=== PATIENT | male | born 1965 | race Two or more races ===

== ENCOUNTER 2017-03-27 13:36 | Emergency (ER) | payer SELFPAY ==
--- NOTE | 2017-03-27 14:25 | ER Document Report ---
ED Skin Rash/Insect Bite/Abscs - General Chief Complaint: Abscess Stated Complaint: POSSIBLE CYST ON BACK Time Seen by Provider: 03/27/17 14:19 Notes: Patient is a 51-year-old male presents emergency department complaining of inflammation of the cyst he has had on his right shoulder for a couple years. Patient states he has never had problems within the past but over the past couple of days it has gotten red, tender, swollen with a little bit of drainage. He states that it is tender to touch. Otherwise he denies any fever , chills. TRAVEL OUTSIDE OF THE [place] IN LAST 30 DAYS: No Past Medical History - Social History Smoking Status: Current Every Day Smoker Family History: Reviewed & Not Pertinent Renal/ Medical History: Denies: Hx Peritoneal Dialysis Review of Systems - Review of Systems Constitutional: No symptoms reported Skin: See HPI -: Yes All other systems reviewed and negative Physical Exam - Vital signs Vitals: Temp Pulse Resp BP Pulse Ox 97.8 F 67 20 147/80 H 98 03/27/17 13:46 03/27/17 13:46 03/27/17 13:46 03/27/17 13:46 03/27/17 13:46 - General General appearance: Appears well, Alert In distress: None - Extremities Shoulder: Normal, Nontender. No: Limited ROM - Skin Skin irregularity: Abscess - right shoulder measuring [id number] Irregularity with: Tenderness, Weeping Course - Re-evaluation Re-evalutation: 03/27/17 14:42 Patient is a 51-year-old male who is hemodynamic stable, no acute distress afebrile. Presents with cellulitis of his cyst that he has had for 2 years. I& D performed at the bedside to relieve pressure. Patient clinically states he feels much much better. Patient educated on post incision and drainage wound care and to follow-up with primary care in 3 days for wound check. Patient agrees with plan. - Vital Signs Vital signs: Temp Pulse Resp BP Pulse Ox 97.8 F 67 20 147/80 H 98 03/27/17 13:46 03/27/17 13:46 03/27/17 13:46 03/27/17 13:46 03/27/17 13:46 Procedures - Incision and Drainage Right Shoulder Type: Simple Anesthetic type: 1% Lidocaine mL's of anesthetic: 3 Blade size: 11 I&D procedure: Betadine prep applied Incision Method: Incision made by scalpel Amount/type of drainage: 10cc cystic material Discharge - Discharge Clinical Impression: Abscess Condition: Good Disposition: HOME, SELF-CARE Instructions: Oral Narcotic Medication ([facility]), Post Incision and Drainage, Abscess ([facility]), Cellulitis ([facility]) Referrals: [facility] [Provider Group] - Follow up in 3-5 days (for wound check)
[2017-03-27] MEDS ORDERED: HYDROCODONE/ACETAMINOPHEN 5-325 MG 6 TAB/DSPK PO PRN (15:00)
[2017-03-27] MEDS ORDERED: OXYCODONE-ACETAMINOPHEN 5-325 MG TABLET PO ONE (15:00)
[2017-03-27 16:18] VITALS: BP 145/82
== END 2017-03-27 15:55 | disposition home or self-care (01) ==
LOC: ER 13:36
PROC: 0H9BXZZ Drainage of Right Upper Arm Skin, External Approach (ICD-10-PCS; principal; 2017-03-27)
DX: L02.413 Cutaneous abscess of right upper limb (principal); F17.200 Nicotine dependence, unspecified, uncomplicated
CPT/HCPCS: 99283

== ENCOUNTER 2017-05-29 18:49 | Inpatient (IN) | payer OTHER ==
[2017-05-30] MEDS ORDERED: VANCOMYCIN HCL INJ 1000 MG VIAL IV ONE (00:52)
[2017-05-30] MEDS ORDERED: CEFTRIAXONE 1 GM/D5W RTU 1 GM/50 ML RTUPB IV ONE (00:53)
[2017-05-30] MEDS ORDERED: NORMAL SALINE 1000 ML 1,000 ML IV ONE (00:54)
--- NOTE | 2017-05-30 00:56 | ER Document Report ---
ED General - General Chief Complaint: Abscess Stated Complaint: FINGER PAIN Time Seen by Provider: 05/29/17 22:48 Notes: Patient is a 51-year-old male without any chronic medical problems who presents with complaints of increased swelling and pain to his right middle finger after extracting a splinter that was buried underneath his nail bed earlier today. Patient states that the splinter has been in place since approximately December of this year but it remained persistently painful since that time. He states today he pulled the splinter out from underneath his nail bed and a large amount of pus was expressed. However, he states that he began to develop progressively worsening swelling and pain to the finger since that time. He is right-hand dominant. Nothing improves the pain. He states touching the area worsens the pain. He has no prior history of swelling or this degree of discomfort to the splinter became lodged under the nail bed. He has not seen his primary care doctor regarding today's concerns. He denies any associated fever or constitutional symptoms. TRAVEL OUTSIDE OF THE [place] IN LAST 30 DAYS: No Past Medical History - General Information source: Patient - Social History Smoking Status: Never Smoker Frequency of alcohol use: None Drug Abuse: None Lives with: Spouse/Significant other Family History: Reviewed & Not Pertinent Patient has suicidal ideation: No Patient has homicidal ideation: No Renal/ Medical History: Denies: Hx Peritoneal Dialysis Review of Systems - Review of Systems Notes: Constitutional: Negative for fever. HENT: Negative for sore throat. Eyes: Negative for visual changes. Cardiovascular: Negative for chest pain. Respiratory: Negative for shortness of breath. Gastrointestinal: Negative for abdominal pain, vomiting or diarrhea. Genitourinary: Negative for dysuria. Musculoskeletal: Positive for right middle finger pain Skin: Negative for rash. Neurological: Negative for headaches, weakness or numbness. 10 point ROS negative except as marked above and in HPI. Physical Exam - Vital signs Vitals: Temp Pulse Resp BP Pulse Ox 98.7 F 74 18 147/92 H 97 05/29/17 19:30 05/29/17 19:30 05/29/17 19:30 05/29/17 19:30 05/29/17 19:30 Interpretation: Normal Notes: PHYSICAL EXAMINATION: GENERAL: Appears uncomfortable but in no acute distress HEAD: Atraumatic, normocephalic. EYES: Pupils equal round and reactive to light, extraocular movements intact, sclera anicteric, conjunctiva are normal. ENT: nares patent, oropharynx clear without exudates. Moderately dry mucous membranes. NECK: Normal range of motion, supple without lymphadenopathy LUNGS: Breath sounds clear to auscultation bilaterally and equal. No wheezes rales or rhonchi. HEART: Regular rate and rhythm without murmurs. 2+ radial pulse bilaterally. ABDOMEN: Soft, nontender, normoactive bowel sounds. No guarding, no rebound. No masses appreciated. EXTREMITIES: There is diffuse circumferential swelling to the right middle finger extending from the PIP to the end of the finger. Patient is unable to perform flexion of the digit at the DIP or PIP. He has pain along the flexor sheath of the tendon. There is a prominent swelling to the volar pad and apparent paronychia underneath the nailbed. There is a large clotted hematoma likewise into the distal end of the nailbed. NEUROLOGICAL: No focal neurological deficits. Moves all extremities spontaneously and on command. PSYCH: Normal mood, normal affect. SKIN: Warm, Dry, normal turgor, no rashes or lesions noted. Course - Re-evaluation Re-evalutation: 05/30/17 00:55 Presentation of a [id number] male with extreme swelling and pain to the right middle finger after he pulled a splinter that have been in place for approximately 4 months out of his nail bed today. Initial evaluation seemed consistent with a severe paronychia and felon of the digit. However, after a digital block was placed in appropriate incision and drainage for a possible paronychia and felon was performed and no fluid could be drained. I then performed a bedside percutaneous ultrasound and was unable to localize any fluid collection. Patient is unable to flex the digit at the DIP or PIP. He has pain all along the flexor sheath. He has a sausage digit. This presentation particularly given the lack of any distinct fluid collection is increasingly worrisome for a flexor tenosynovitis. Will place an IV, provide IV antibiotics, obtain laboratories, cultures, and consult with orthopedic surgery for admission 05/30/17 02:09 Labs have returned, overall unremarkable, awaiting x-ray. 05/30/17 02:33 I have discussed with Dr. smith who agrees to admit the patient on IV antibiotics. - Vital Signs Vital signs: Temp Pulse Resp BP Pulse Ox 98.7 F 74 18 147/92 H 97 05/29/17 19:30 05/29/17 19:30 05/29/17 19:30 05/29/17 19:30 05/29/17 19:30 - Laboratory Result Diagrams: 05/30/17 01:00 05/30/17 01:00 Laboratory results interpreted by me: 05/30/17 01:00 BUN 21 H - Diagnostic Test Radiology reviewed: Image reviewed, Reports reviewed Radiology results interpreted by me: 05/30/17 02:33 Right hand x-ray: No obvious retained foreign body Procedures - Incision and Drainage Right 3rd digit Type: Simple Anesthetic type: 1% Lidocaine mL's of anesthetic: 3 Blade size: 11 I&D procedure: Betadine prep applied Incision Method: Incision made by scalpel Amount/type of drainage: 2 cc bloody drainage Discharge - Discharge Clinical Impression: Swelling of right middle finger, Flexor tenosynovitis of finger Condition: Fair Disposition: ADMITTED INPATIENT Admitting Provider: [facility] Unit Admitted: Surgical Floor
[2017-05-30] MEDS: HYDROMORPHONE HCL INJ/PF 2 MG/ML AMPULE IV PRN ×5 (01:12→21:46)
[2017-05-30 01:33] LABS: ABSOLUTE BASOPHILS # (AUTO) 0.1 10^3/uL (0.0-0.2); ABSOLUTE EOSINOPHILS # (AUTO) 0.4 10^3/uL (0.0-0.6); ABSOLUTE LYMPHOCYTES (AUTO) 3.4 10^3/uL (0.5-4.7); ABSOLUTE MONOCYTES (AUTO) 0.9 10^3/uL (0.1-1.4); ABSOLUTE NEUT (AUTO) 5.3 10^3/uL (1.7-8.2); HEMATOCRIT 40.7 % (37.9-51.0); HEMOGLOBIN 14.1 g/dL (13.5-17.0); HGB HCT DIFFERENCE 1.6; LYMPHOCYTES % (AUTO) 33.5 % (13-45); MEAN CORPUSCULAR HEMOGLOBIN 29.7 pg (27.0-33.4); MEAN CORPUSCULAR HGB CONC 34.8 g/dL (32.0-36.0); MEAN CORPUSCULAR VOLUME 86 fl (80-97); MONOCYTES % (AUTO) 8.6 % (3-13); RED BLOOD COUNT 4.75 10^6/uL (4.35-5.55); RED CELL DISTRIBUTION WIDTH 12.7 % (11.5-14.0); SEGMENTED NEUTROPHILS % (AUTO) 52.9 % (42-78)
[2017-05-30 01:41] LABS: ANION GAP 12 (5-19); BLOOD UREA NITROGEN 21 mg/dL (7-20); CALCIUM 9.2 mg/dL (8.4-10.2); CARBON DIOXIDE 25 mmol/L (22-30); CHLORIDE 104 mmol/L (98-107); CREATININE RESULT 0.81 mg/dL (0.52-1.25); GLUCOSE 100 mg/dL (75-110); POTASSIUM 4.4 mmol/L (3.6-5.0); SODIUM 140.8 mmol/L (137-145)
[2017-05-30] MEDS ORDERED: HYDROMORPHONE HCL INJ/PF 2 MG/ML AMPULE IV ONE (02:32)
--- NOTE | 2017-05-30 02:51 | RADIOLOGY REPORT (SQ) ---
EXAM DESCRIPTION: HAND RIGHT 3 VIEWS COMPLETED DATE/TIME: 05/30/2017 2:15 am REASON FOR STUDY: eval foreign body . Splinter under the nail. Pain at the distal 3rd digit. COMPARISON: None. EXAM PARAMETERS: NUMBER OF VIEWS: Three views. TECHNIQUE: AP, lateral and oblique radiographic images acquired of the right hand. LIMITATIONS: None. FINDINGS: MINERALIZATION: Normal. BONES: No acute fracture or dislocation. SOFT TISSUES: Soft tissue swelling at the 3rd digit. No radiopaque foreign body. IMPRESSION: No radiographic evidence for acute fracture or radiopaque foreign body. Soft tissue swe lling at the 3rd digit. TECHNICAL DOCUMENTATION: JOB ID: [id number] [id number]- All Rights Reserved
[2017-05-30] MEDS ORDERED: ONDANSETRON HCL INJ/PF 4 MG/2 ML SDV IV PRN (03:19)
[2017-05-30] MEDS ORDERED: AMPICILLIN SOD/SULBACTAM 3 GM VIAL IV PRN (04:27)
[2017-05-30] MEDS ORDERED: AMPICILLIN SOD/SULBACTAM 3 GM VIAL IV SCH (06:00)
[2017-05-30] MEDS ORDERED: AMPICILLIN SODIUM/SULBACTAM NA 3 GM in NORMAL SALINE 100 ML IV SCH ×5 (06:00→18:00)
[2017-05-30] MEDS: RINGERS SOLUTION,LACTATED 1,000 ML IV PRN (06:58)
--- NOTE | 2017-05-30 08:37 | PDOC H&P ---
History of Present Illness Admission Date/PCP: 05/30/17 02:42 Patient complains of: Right middle finger pain History of Present Illness: COLIN PURVIS is a 51 year old male who sustained injury to his right middle finger at work. He states a splinter that stuck in his middle finger back in December and part of it was removed but the other segment could not be removed. He was not having issues until this past Monday began having increasing pain redness and swelling. He subsequently presented to emergency room with these complaints while in the emergency room attempted bedside irrigation debridement was performed but no gross purulence was encountered. Patient states the pain is worse with any motion also noticed some numbness and tingling in the fingers. Denies fever chills or sweats. Pain /. Social History Lives with: Spouse/Significant other Smoking Status: Never Smoker Frequency of Alcohol Use: Rare Family History Family History: Reviewed & Not Pertinent Parental Family History Reviewed: No Children Family History Reviewed: No Sibling(s) Family History Reviewed.: No Medication/Allergy Home Medications: Ibuprofen [Motrin 800 mg Tablet] 800 mg PO Q8H PRN #30 tab 03/27/17 Allergies/Adverse Reactions: No Known Allergies Allergy (Unverified 05/30/17 03:27) Review of Systems Constitutional: ABSENT: chills, fever(s), headache(s), weight gain, weight loss Eyes: ABSENT: visual disturbances Ears: ABSENT: hearing changes Cardiovascular: ABSENT: chest pain, dyspnea on exertion, edema, orthropnea, palpitations Respiratory: ABSENT: cough, hemoptysis Gastrointestinal: ABSENT: abdominal pain, constipation, diarrhea, hematemesis, hematochezia, nausea, vomiting Genitourinary: ABSENT: dysuria, hematuria Musculoskeletal: PRESENT: as per HPI Integumentary: ABSENT: rash, wounds Neurological: ABSENT: abnormal gait, abnormal speech, confusion, dizziness, focal weakness, syncope Psychiatric: ABSENT: anxiety, depression, homidical ideation, suicidal ideation Endocrine: ABSENT: cold intolerance, heat intolerance, menstrual abnormalities, polydipsia, polyuria Hematologic/Lymphatic: ABSENT: easy bleeding, easy bruising, lymphadenopathy Physical Exam Vital Signs: Temp Pulse Resp BP Pulse Ox 98.5 F 65 18 124/89 H 97 05/30/17 03:42 05/30/17 03:42 05/30/17 03:42 05/30/17 03:42 05/30/17 03:42 Intake & Output 05/29/17 05/30/17 05/31/17 06:59 06:59 06:59 Intake Total 150 Balance 150 Weight 83.1 kg General appearance: PRESENT: no acute distress, well-developed, well-nourished Head exam: PRESENT: atraumatic, normocephalic Eye exam: PRESENT: conjunctiva pink, EOMI, PERRLA. ABSENT: scleral icterus Ear exam: PRESENT: normal external ear exam Mouth exam: PRESENT: moist, tongue midline Teeth exam: PRESENT: poor dentation Neck exam: PRESENT: full ROM. ABSENT: carotid bruit, JVD, lymphadenopathy, thyromegaly Cardiovascular exam: PRESENT: RRR. ABSENT: diastolic murmur, rubs, systolic murmur Pulses: PRESENT: normal dorsalis pedis pul, +2 pedal pulses bilateral Vascular exam: PRESENT: normal capillary refill GI/Abdominal exam: PRESENT: normal bowel sounds, soft. ABSENT: distended, guarding, mass, organolmegaly, rebound, tenderness Rectal exam: PRESENT: deferred Musculoskeletal exam: PRESENT: other - Right hand: Tenderness to palpation along the flexor sheath of the middle finger. No tenderness proximal to the MP joint or at the A1 noa. Pain with passive extension. Notable erythema and swelling along the pulp with exquisite tenderness to palpation. Ecchymosis along the hyponychium adjacent to the nail at the level of previous puncture wound. Exquisite tenderness to palpation at this region. Altered sensation on the distal tip. Cap refill less than 2 seconds. Neurological exam: PRESENT: alert, awake, oriented to person, oriented to place , oriented to time, oriented to situation, CN II-XII grossly intact. ABSENT: motor sensory deficit Psychiatric exam: PRESENT: appropriate affect, normal mood. ABSENT: homicidal ideation, suicidal ideation Skin exam: PRESENT: dry, intact, warm. ABSENT: cyanosis, rash Results Impressions: Hand X-Ray 05/30/17 00:54 IMPRESSION: No radiographic evidence for acute fracture or radiopaque foreign body. Soft tissue swelling at the 3rd digit. Status: Image reviewed by mt - Radiographs of the right middle finger have been reviewed which demonstrate soft tissue swelling no evidence of opaque foreign body or osseous changes. Assessment & Plan - Diagnosis (1) Flexor tenosynovitis of finger Is this a current diagnosis for this admission?: Yes Plan: Given the findings on physical examination patient has underlying flexor tenosynovitis with associated likely paronychia I caused by his original foreign body injury. Given these findings I have recommended operative intervention which includes irrigation and debridement of the right middle finger risks and benefits of the surgical procedure have been explained to the patient including neurovascular risk, recurrent infection requiring future surgical intervention or possibility of amputation, postoperative stiffness and persistent swelling. Patient has verbalized understanding consented for the procedure.
[2017-05-30] MEDS ORDERED: BACITRACIN INJ 50,000 UNIT VIAL ONE (10:21)
[2017-05-30] MEDS ORDERED: HYDROMORPHONE HCL INJ/PF 2 MG/ML AMPULE ONE (11:15)
[2017-05-30] MEDS ORDERED: PROPOFOL INJ 200 MG/20 ML VIAL IV ONE (11:16)
[2017-05-30] MEDS ORDERED: MIDAZOLAM 2 MG/2 ML INJ ONE (11:16)
[2017-05-30] MEDS ORDERED: FENTANYL CITRATE INJ/PF 100 MCG/2 ML AMPUL ONE (11:16)
[2017-05-30] MEDS ORDERED: BUPIVACAINE HCL 0.5 % INJ/PF 30 ML SDV ONE (11:32)
[2017-05-30] MEDS ORDERED: LIDOCAINE 1% INJ-PF (10 MG/ML) 30 ML SDV ONE (11:32)
[2017-05-30] MEDS ORDERED: OXYCODONE-ACETAMINOPHEN 5-325 MG TABLET PO PRN ×2 (12:04)
[2017-05-30] MEDS ORDERED: PROMETHAZINE HCL INJ 25 MG/1 ML VIAL IV PRN ×2 (12:04)
[2017-05-30] MEDS ORDERED: FENTANYL CITRATE INJ/PF 100 MCG/2 ML AMPUL IV PRN ×3 (12:04)
[2017-05-30] MEDS ORDERED: MORPHINE SULFATE 10 MG/ML INJ IV PRN (12:04)
[2017-05-30] MEDS ORDERED: MEPERIDINE HCL/PF INJ 25 MG/1 ML DISP.SYRIN IV PRN (12:04)
[2017-05-30] MEDS ORDERED: DIPHENHYDRAMINE HCL 50 MG/ML VIAL IV PRN (12:04)
--- NOTE | 2017-05-30 12:42 | Operative Report ---
Operative Report DATE OF SURGERY: 05/30/17 PREOPERATIVE DIAGNOSIS: Flexor tenosynovitis right middle finger POSTOPERATIVE DIAGNOSIS: #1 Flexor tenosynovitis right middle finger. #2 retained foreign body right middle finger. #3 nailbed laceration right middle finger. #4 abscess hyponychium right middle finger OPERATION: #1 I&D Flexor tenosynovitis right middle finger. #2 removal retained foreign body right middle finger. #3 repair nailbed laceration right middle finger. #4 I&D abscess hyponychium right middle finger including bone of distal phalanx SURGEON: ERIKA HERBERT ANESTHESIA: LMAC TISSUE REMOVED OR ALTERED: Aerobic/Anaerobic Cx COMPLICATIONS: None ESTIMATED BLOOD LOSS: Minimal PROCEDURE: Procedure detail: Patient was seen and identified preoperative the right upper extremity initialized and marked. Patient was taken back to the operating room. Patient was receiving Unasyn scheduled and thus preoperative antibiotics were not given. Nonsterile tourniquet was placed on the right upper extremity. Surgical debriefing was performed no concerns were verbalized. Digital block was performed utilizing 10 cc of 50: 50 mixture of 1% lidocaine and half percent Marcaine. Right upper extremity was prepped with Betadine and draped in a sterile fashion. Timeout was done identifying correct patient, extremity and procedure everyone in attendance to give this verbalized no concerns. Extremity was elevated and tourniquet inflated to 250 mmHg. At the area of the entrance wound along the distal phalanx at the level of the hyponychium a small skin incision was made and copious amount of purulence was encountered. Cultures were obtained from this region this area was then decompressed and the nail plate removed. There was a longitudinal laceration of the nail bed. There was a defect in the distal phalanx but no softening of the bone was appreciated to indicate underlying osteomyelitis. The wound was copiously irrigated with normal saline. I then turned my attention to the flexor sheath. Oblique and skin incision was made along the middle phalanx blunt dissection was performed to the soft tissues neurovascular bundles were retracted. The a 5 noa was opened there was a mild amount of fluid within the sheath but no gross purulence. Because of the fluid I turned my attention to opening the A1 noa as well. Oblique skin incision was made along the A1 noa blunt dissection performed and the A1 noa opened. Once again a small amount of clear appearing fluid was encountered. The wound was then copiously irrigated with normal saline. A Andry drain was placed from the middle phalanx wound at the A5 noa to the A1 noa wound. The skin was loosely closed with interrupted 4-0 nylon suture. I then once again copiously irrigated the wound at the hyponychium. The nailbed was reapproximated with 5-0 chromic gut suture. I then placed the Xeroform at the area where the previous nail plate would be and underneath the nail fold to avoid adherence. This was then secured with 5-0 chromic gut suture. Wound was dressed with Xeroform and a loosely applied Kerlix and Coban. Patient had good peripheral perfusion once the tourniquet was deflated. Sponge counts, instrument counts, needle counts counts were correct. Patient was then awoken from anesthesia. Transferred from the operating room table to the operating room stretcher. There was no intraoperative complications patient tolerated procedure well stable to PACU. Postoperative plan: Patient will undergo dressing change on postop day #2 and begin range of motion exercises. We will continue Unasyn IV till cultures are final or patient has significant clinical improvement.
[2017-05-30] MEDS ORDERED: AMPICILLIN SODIUM/SULBACTAM NA 3 GM in NORMAL SALINE 100 ML IV ONE (13:30)
[2017-05-30] MEDS: AMPICILLIN SODIUM/SULBACTAM NA 3 GM in NORMAL SALINE 100 ML IV SCH (19:22)
[2017-05-31] MEDS: HYDROMORPHONE HCL INJ/PF 2 MG/ML AMPULE IV PRN ×6 (00:08→21:17)
[2017-05-31] MEDS: AMPICILLIN SODIUM/SULBACTAM NA 3 GM in NORMAL SALINE 100 ML IV SCH ×5 (00:08→23:30)
[2017-05-31] MEDS: RINGERS SOLUTION,LACTATED 1,000 ML IV PRN ×2 (02:11→17:38)
[2017-05-31 07:23] LABS: ABSOLUTE EOSINOPHILS # (AUTO) 0.3 10^3/uL (0.0-0.6); ABSOLUTE LYMPHOCYTES (AUTO) 2.6 10^3/uL (0.5-4.7); ABSOLUTE MONOCYTES (AUTO) 0.9 10^3/uL (0.1-1.4); ABSOLUTE NEUT (AUTO) 5.7 10^3/uL (1.7-8.2); BASOPHILS % (AUTO) 0.1 % (0-2); EOSINOPHILS % (AUTO) 2.9 % (0-6); HEMATOCRIT 39.7 % (37.9-51.0); HEMOGLOBIN 13.5 g/dL (13.5-17.0); HGB HCT DIFFERENCE 0.8; LYMPHOCYTES % (AUTO) 27.5 % (13-45); MEAN CORPUSCULAR HEMOGLOBIN 28.9 pg (27.0-33.4); MEAN CORPUSCULAR HGB CONC 33.9 g/dL (32.0-36.0); MEAN CORPUSCULAR VOLUME 85 fl (80-97); MONOCYTES % (AUTO) 9.2 % (3-13); RED BLOOD COUNT 4.66 10^6/uL (4.35-5.55); RED CELL DISTRIBUTION WIDTH 12.7 % (11.5-14.0); SEGMENTED NEUTROPHILS % (AUTO) 60.3 % (42-78); WHITE BLOOD COUNT 9.5 10^3/uL (4.0-10.5)
[2017-05-31] MEDS: OXYCODONE-ACETAMINOPHEN 5-325 MG TABLET PO PRN ×3 (07:46→19:04)
--- NOTE | 2017-05-31 08:22 | PDOC PROGRESS REPORT ---
Subjective Progress Note for:: 05/31/17 Subjective:: 51-year-old white male 1 day status post incision and drainage and foreign body removal of flexor tenosynovitis of middle finger on right hand. Patient sitting upright and eating breakfast in hospital bed this morning. Patient states that he was comfortable overnight and is not having increased pain in his right hand. Patient is curious as to why his other fingers are still swollen. Patient was informed this is likely postoperative edema. Reason For Visit: FLEXOR TENOSYNOVITIS Physical Exam Vital Signs: Temp Pulse Resp BP Pulse Ox 36.8 C 76 18 105/57 L 97 05/31/17 05:09 05/31/17 05:09 05/31/17 05:09 05/31/17 05:09 05/31/17 05:09 Intake & Output 05/30/17 05/31/17 06/01/17 06:59 06:59 06:59 Intake Total 150 4488 Output Total 1000 Balance 150 3488 Weight 83.1 kg General appearance: PRESENT: no acute distress, well-developed, well-nourished Head exam: PRESENT: atraumatic, normocephalic Respiratory exam: PRESENT: unlabored Pulses: PRESENT: normal dorsalis pedis pul, +2 pedal pulses bilateral Vascular exam: PRESENT: normal capillary refill Extremities exam: PRESENT: tenderness Additional comments: Patient sitting upright in hospital bed eating breakfast this morning. Patient' s right hand and middle fingers are in postop compression dressing. This dressing is clean dry and intact. Patient has brisk capillary refill to fingers on bilateral upper extremities. He is slightly tender to palpation in fingers on right hand. Patient also notes that they are more swollen than normal. He was informed that this is likely postoperative edema. He has appropriate strength and range of motion for this stage in healing process in terms of flexion extension pronation supination of the wrist. His sensorimotor functions are intact and his distal neurovascular exam is intact. Musculoskeletal exam: PRESENT: ambulatory, tenderness Additional comments: As noted above patient does have some tenderness in the fingers on the right hand. This will likely decrease as postoperative edema decreases as well. He may benefit from occupational therapy in the future to improve strength and range of motion of fingers on right hand. Neurological exam: PRESENT: alert, awake, oriented to person, oriented to place , oriented to time, oriented to situation, CN II-XII grossly intact. ABSENT: motor sensory deficit Psychiatric exam: PRESENT: appropriate affect, normal mood. ABSENT: homicidal ideation, suicidal ideation Skin exam: PRESENT: dry, intact, warm. ABSENT: cyanosis, rash Results Laboratory Results: 05/31/17 07:10 05/31/17 07:10 WBC 9.5 RBC 4.66 Hgb 13.5 Hct 39.7 MCV 85 MCH 28.9 MCHC 33.9 RDW 12.7 Plt Count 419 Seg Neutrophils % 60.3 Lymphocytes % 27.5 Monocytes % 9.2 Eosinophils % 2.9 Basophils % 0.1 Absolute Neutrophils 5.7 Absolute Lymphocytes 2.6 Absolute Monocytes 0.9 Absolute Eosinophils 0.3 Absolute Basophils 0.0 Impressions: Hand X-Ray 05/30/17 00:54 IMPRESSION: No radiographic evidence for acute fracture or radiopaque foreign body. Soft tissue swelling at the 3rd digit. Assessment & Plan - Diagnosis (1) Flexor tenosynovitis of finger Is this a current diagnosis for this admission?: Yes - Plan Summary Plan Summary: 51-year-old white male 1 day status post incision and drainage and foreign body removal of flexor tendon synovitis of the middle finger on the right hand. Patient's pain is well controlled and he was comfortable overnight. He is concerned about residual swelling in fingers on the right hand. This was addressed and patient was informed that this will likely decrease over time as postoperative swelling decreases. He appears to have appropriate strength range of motion of the right hand however he may benefit from occupational therapy in the future. It is our postoperative plan right now to plan for discharge on Monday.
[2017-06-01] MEDS: OXYCODONE-ACETAMINOPHEN 5-325 MG TABLET PO PRN ×4 (04:04→21:51)
[2017-06-01] MEDS: HYDROMORPHONE HCL INJ/PF 2 MG/ML AMPULE IV PRN ×3 (05:26→20:19)
[2017-06-01] MEDS: AMPICILLIN SODIUM/SULBACTAM NA 3 GM in NORMAL SALINE 100 ML IV SCH ×3 (06:14→17:41)
--- NOTE | 2017-06-01 06:49 | PDOC PROGRESS REPORT ---
Subjective Progress Note for:: 06/01/17 Subjective:: Patient sitting in hospital bed this morning ordering breakfast when we entered the room. Patient reports he is very comfortable and that he still cannot quite feel his second and middle finger. No other complaints otherwise. Patient was informed that he is on appropriate antibiotics for Culture and sensitivity of bacteria sample taken in surgery. Patient voiced understanding. Reason For Visit: FLEXOR TENOSYNOVITIS Physical Exam Vital Signs: Temp Pulse Resp BP Pulse Ox 37.1 C 76 18 121/58 L 96 06/01/17 04:00 06/01/17 04:00 06/01/17 04:00 06/01/17 04:00 06/01/17 04:00 Intake & Output 05/30/17 05/31/17 06/01/17 06:59 06:59 06:59 Intake Total 150 4488 2440 Output Total 1000 Balance 150 3488 2440 Weight 83.1 kg Physical Exam: Grossly unchanged from previous exam. General appearance: PRESENT: no acute distress, well-developed, well-nourished Head exam: PRESENT: atraumatic, normocephalic Respiratory exam: PRESENT: unlabored Pulses: PRESENT: normal dorsalis pedis pul, +2 pedal pulses bilateral Vascular exam: PRESENT: normal capillary refill Additional comments: Patient's right upper extremity is in postop compression dressing. This dressing is clean dry and intact. He has appropriate range of motion he has brisk capillary refill his sensory motor functions are intact and his distal neurovascular exam is intact. Musculoskeletal exam: PRESENT: ambulatory Neurological exam: PRESENT: alert, awake, oriented to person, oriented to place , oriented to time, oriented to situation, CN II-XII grossly intact. ABSENT: motor sensory deficit Psychiatric exam: PRESENT: appropriate affect, normal mood. ABSENT: homicidal ideation, suicidal ideation Skin exam: PRESENT: dry, intact, warm. ABSENT: cyanosis, rash Results Laboratory Results: 05/31/17 07:10 05/31/17 07:10 WBC 9.5 RBC 4.66 Hgb 13.5 Hct 39.7 MCV 85 MCH 28.9 MCHC 33.9 RDW 12.7 Plt Count 419 Seg Neutrophils % 60.3 Lymphocytes % 27.5 Monocytes % 9.2 Eosinophils % 2.9 Basophils % 0.1 Absolute Neutrophils 5.7 Absolute Lymphocytes 2.6 Absolute Monocytes 0.9 Absolute Eosinophils 0.3 Absolute Basophils 0.0 Impressions: Hand X-Ray 05/30/17 00:54 IMPRESSION: No radiographic evidence for acute fracture or radiopaque foreign body. Soft tissue swelling at the 3rd digit. Assessment & Plan - Diagnosis (1) Flexor tenosynovitis of finger Is this a current diagnosis for this admission?: Yes - Plan Summary Plan Summary: 51-year-old white male 2 days status post incision and drainage for flexor tendon synovitis of the third finger on the right hand. Patient is comfortable and has no other complaints other than numbness of his third and fourth digit on his right hand. Patient was informed that he is on appropriate antibiotic therapy for cultures taken in surgery. He is appropriate strength and range of motion for this stage in the healing process. He will continue IV antibiotics throughout his stay in the hospital and will likely be discharged on Monday.
[2017-06-01 10:50] LABS: ABSOLUTE BASOPHILS # (AUTO) 0.1 10^3/uL (0.0-0.2); ABSOLUTE EOSINOPHILS # (AUTO) 0.3 10^3/uL (0.0-0.6); ABSOLUTE LYMPHOCYTES (AUTO) 2.5 10^3/uL (0.5-4.7); ABSOLUTE MONOCYTES (AUTO) 0.7 10^3/uL (0.1-1.4); ABSOLUTE NEUT (AUTO) 2.6 10^3/uL (1.7-8.2); BASOPHILS % (AUTO) 1.1 % (0-2); EOSINOPHILS % (AUTO) 4.6 % (0-6); HEMATOCRIT 38.5 % (37.9-51.0); HEMOGLOBIN 13.5 g/dL (13.5-17.0); LYMPHOCYTES % (AUTO) 40.8 % (13-45); MEAN CORPUSCULAR HEMOGLOBIN 29.7 pg (27.0-33.4); MEAN CORPUSCULAR VOLUME 85 fl (80-97); MONOCYTES % (AUTO) 11.4 % (3-13); RED BLOOD COUNT 4.54 10^6/uL (4.35-5.55); RED CELL DISTRIBUTION WIDTH 12.4 % (11.5-14.0); SEGMENTED NEUTROPHILS % (AUTO) 42.1 % (42-78); WHITE BLOOD COUNT 6.1 10^3/uL (4.0-10.5)
[2017-06-01] MEDS: RINGERS SOLUTION,LACTATED 1,000 ML IV PRN (10:52)
[2017-06-02] MEDS: AMPICILLIN SODIUM/SULBACTAM NA 3 GM in NORMAL SALINE 100 ML IV SCH ×3 (00:50→12:11)
[2017-06-02] MEDS: OXYCODONE-ACETAMINOPHEN 5-325 MG TABLET PO PRN ×2 (04:54→12:17)
[2017-06-02] MEDS: RINGERS SOLUTION,LACTATED 1,000 ML IV PRN (04:58)
[2017-06-02 07:39] LABS: ABSOLUTE BASOPHILS # (AUTO) 0.1 10^3/uL (0.0-0.2); ABSOLUTE EOSINOPHILS # (AUTO) 0.3 10^3/uL (0.0-0.6); ABSOLUTE LYMPHOCYTES (AUTO) 2.2 10^3/uL (0.5-4.7); ABSOLUTE MONOCYTES (AUTO) 0.6 10^3/uL (0.1-1.4); ABSOLUTE NEUT (AUTO) 3.6 10^3/uL (1.7-8.2); EOSINOPHILS % (AUTO) 4.7 % (0-6); HEMATOCRIT 41.2 % (37.9-51.0); HEMOGLOBIN 14.2 g/dL (13.5-17.0); HGB HCT DIFFERENCE 1.4; LYMPHOCYTES % (AUTO) 32.7 % (13-45); MEAN CORPUSCULAR HEMOGLOBIN 29.6 pg (27.0-33.4); MEAN CORPUSCULAR HGB CONC 34.4 g/dL (32.0-36.0); MEAN CORPUSCULAR VOLUME 86 fl (80-97); MONOCYTES % (AUTO) 8.8 % (3-13); RED BLOOD COUNT 4.79 10^6/uL (4.35-5.55); RED CELL DISTRIBUTION WIDTH 12.5 % (11.5-14.0); SEGMENTED NEUTROPHILS % (AUTO) 52.8 % (42-78); WHITE BLOOD COUNT 6.8 10^3/uL (4.0-10.5)
[2017-06-02 13:26] VITALS: BP 131/68
--- NOTE | 2017-06-02 13:32 | PDOC DISCHARGE SUMMARY ---
General - Admit/Disc Date/PCP Admission Date/Primary Care Provider: 05/30/17 02:42 Discharge Date: 06/02/17 - Discharge Diagnosis (1) Flexor tenosynovitis of finger Is this a current diagnosis for this admission?: Yes - Additional Information Resuscitation Status: Full Code Discharge Diet: As Tolerated Discharge Activity: Activity As Tolerated, No Lifting Over 10 Pounds, No Lifting /Push/Pulling Home Medications: Clindamycin HCl 300 mg PO Q8 #40 capsule 06/02/17 Hydrocodone/Acetaminophen [[place] 5-325 Tablet] 1 - 2 tab PO ASDIR PRN #50 tab History of Present Illness History of Present Illness: COLIN PURVIS is a 51 year old male who sustained injury to his right middle finger at work. He states a splinter that stuck in his middle finger back in December and part of it was removed but the other segment could not be removed. He was not having issues until this past Monday began having increasing pain redness and swelling. He subsequently presented to emergency room with these complaints while in the emergency room attempted bedside irrigation debridement was performed but no gross purulence was encountered. Patient states the pain is worse with any motion also noticed some numbness and tingling in the fingers. Denies fever chills or sweats. Pain 8/10. Hospital Course Hospital Course: Patient was admitted to the orthopedic service on 07/29/16. Patient underwent irrigation and debridement on 07/30/16 intraoperatively patient was found to have purulent material within the distal pulp and irrigation and debridement of the flexor sheath was performed simultaneously. Patient was started on Unasyn postoperatively. He continued to progress appropriately throughout his hospital course he denied fever chills or constitutional symptoms. White count remained within normal limits. He started twice daily chlorhexidine soaks on postop day #2. On 06/02/17 patient had notable clinical improvement and thus was stable for discharge. Physical Exam Vital Signs: Temp Pulse Resp BP Pulse Ox 98.1 F 83 16 131/68 H 100 06/02/17 13:23 06/02/17 13:23 06/02/17 13:23 06/02/17 13:23 06/02/17 13:23 Intake & Output 06/01/17 06/02/17 06/03/17 06:59 06:59 06:59 Intake Total 2440 2600 480 Balance 2440 2600 480 General appearance: PRESENT: no acute distress, well-developed, well-nourished Head exam: PRESENT: atraumatic, normocephalic Eye exam: PRESENT: conjunctiva pink, EOMI, PERRLA. ABSENT: scleral icterus Ear exam: PRESENT: normal external ear exam Mouth exam: PRESENT: moist, tongue midline Teeth exam: PRESENT: poor dentation Neck exam: PRESENT: full ROM. ABSENT: carotid bruit, JVD, lymphadenopathy, thyromegaly Cardiovascular exam: PRESENT: RRR. ABSENT: diastolic murmur, rubs, systolic murmur Pulses: PRESENT: normal dorsalis pedis pul, +2 pedal pulses bilateral Vascular exam: PRESENT: normal capillary refill GI/Abdominal exam: PRESENT: normal bowel sounds, soft. ABSENT: distended, guarding, mass, organolmegaly, rebound, tenderness Rectal exam: PRESENT: deferred Musculoskeletal exam: PRESENT: other - Right middle finger: Drain removed today. No active purulent drainage from the surgical site. There is significant palpable fluctuance or swelling along the distal pulp. Cap refill less than 2 seconds. Hypoesthesia along the distal tip. No tenderness along the palm. Neurological exam: PRESENT: alert, awake, oriented to person, oriented to place , oriented to time, oriented to situation, CN II-XII grossly intact. ABSENT: motor sensory deficit Psychiatric exam: PRESENT: appropriate affect, normal mood. ABSENT: homicidal ideation, suicidal ideation Skin exam: PRESENT: dry, intact, warm. ABSENT: cyanosis, rash Results Laboratory Results: 06/02/17 07:23 06/02/17 07:23 WBC 6.8 RBC 4.79 Hgb 14.2 Hct 41.2 MCV 86 MCH 29.6 MCHC 34.4 RDW 12.5 Plt Count 487 H Seg Neutrophils % 52.8 Lymphocytes % 32.7 Monocytes % 8.8 Eosinophils % 4.7 Basophils % 1.0 Absolute Neutrophils 3.6 Absolute Lymphocytes 2.2 Absolute Monocytes 0.6 Absolute Eosinophils 0.3 Absolute Basophils 0.1 05/30/17 11:28 Finger - Right Middle Finger Gram Stain - Final 05/30/17 11:28 Finger - Right Middle Finger Wound Culture - Final Staphylococcus Aureus Group C Beta Streptococcus Bacteroides Fragilis Group 05/30/17 12:00 Nail (Finger) Fungal Smear - Final 05/30/17 12:00 Nail (Finger) Fungal Smear - Final Impressions: Hand X-Ray 05/30/17 00:54 IMPRESSION: No radiographic evidence for acute fracture or radiopaque foreign body. Soft tissue swelling at the 3rd digit. Plan Discharge Plan: Patient will continue twice daily chlorhexidine soaks for the next 4 days and then transition to wet to dry and dry dressing changes. I have stressed the importance of passive and active motion of the IP and MP joints home exercise program has been detailed with the patient. Patient will be transitioned to clindamycin given sensitivity findings. Patient will follow-up the office in 10 days but should return sooner if he notices increasing pain, swelling, redness, drainage or temperature greater than 101.5. Patient was read the instructions understood the above instructions and was orthopedically stable for discharge to home on 06/02/17.
== END 2017-06-02 15:10 | disposition home or self-care (01) | DRG 502 ==
LOC: ER 18:49 → EH 05-30 02:42 → 3W 05-30 03:56 → 2N 05-31 01:35
PROVIDERS: ADMIT Orthopaedic Surgery; ATTEND Orthopaedic Surgery
PROC: 0XQQ0ZZ Repair Right Middle Finger, Open Approach (ICD-10-PCS; 2017-05-30)
PROC: 0H9FXZZ Drainage of Right Hand Skin, External Approach (ICD-10-PCS; 2017-05-30)
PROC: 0X9J00Z Drainage of Right Hand with Drainage Device, Open Approach (ICD-10-PCS; 2017-05-30)
PROC: 0JCJ0ZZ Extirpation of Matter from Right Hand Subcutaneous Tissue and Fascia, Open Approach (ICD-10-PCS; 2017-05-30)
PROC: 0L970ZX Drainage of Right Hand Tendon, Open Approach, Diagnostic (ICD-10-PCS; principal; 2017-05-30 11:45)
DX: M65.841 Other synovitis and tenosynovitis, right hand (principal); L03.011 Cellulitis of right finger; S61.322A Laceration with foreign body of right middle finger with damage to nail, initial encounter; M79.644 Pain in right finger(s); W45.8XXA Other foreign body or object entering through skin, initial encounter; Y93.9 Activity, unspecified; Y92.9 Unspecified place or not applicable
CPT/HCPCS: 01810; 36415; 80048; 85025; 87040; 87070; 87075; 87077; 87101; 87186; 87205; 96365; 96375; 99284; J0295; J0696; J1170; J2250; J2704; J3010; J3370; J3490; J7030; J7120